=== PATIENT | female | born 1955 | race Caucasian/White ===

== ENCOUNTER 2020-12-05 09:19 | Outpatient (CLI) | payer BC, SELFPAY ==
--- NOTE | ~2020-12-05 | XR_ITS ---
EXAMINATION: XR chest 2V DATE: 12/05/2020 09:58 INDICATION: Shortness of breath TECHNIQUE: PA and lateral views of the chest were obtained. COMPARISON: None FINDINGS: The lungs are clear with no focal airspace opacities, pulmonary edema, pleural effusion or pneumothor ax. The cardiomediastinal silhouette is normal. Mild thoracolumbar dextrocurvature with mild to moder ate spondylosis. IMPRESSION: 1. No acute cardiopulmonary disease. Reviewed, dictated and finalized at location A.
[2020-12-05 10:00] LABS: Basophils Absolute Auto 0.1 K/mm3 (0.0-0.1); Basophils Percent Auto 0.6 % (0.2-1.2); Eosinophils Absolute Auto 0.2 K/mm3 (0-0.3); Eosinophils Percent Auto 1.7 % (0-4.4); Hemoglobin 14.4 g/dL (12.0-15.0); Immature Granulocyte Absolute 0.04 K/mm3 (0.00-0.031); Immature Granulocyte Percent A 0.4 % (0-0.5); Lymphocytes Absolute Auto 2.43 K/mm3 (0.9-3.2); Lymphocytes Percent Auto 27.1 % (18.3-44.2); Mean Corpuscular HGB Conc 32.7 g/dl (32-36); Mean Corpuscular Volume 91.7 fl (80-100); Monocytes Absolute Auto 0.5 K/mm3 (0.1-0.6); Monocytes Percent Auto 5.1 % (2.6-8.5); Neutrophils Absolute Auto 5.8 K/mm3 (1.3-6.7); Neutrophils Percent Auto 65.1 % (45.5-73.1); Platelet Count Result 339 k/mm3 (150-375); Red Cell Distribution Width 13.9 % (11.5-14.5)
[2020-12-05 10:02] LABS: Add Urine Microscopic? NO; Appearance Urine Clear (Clear); Bilirubin Urine Negative (Negative); Blood Urine Negative (Negative); Color Urine Straw (Yellow); Glucose Urine UA Negative (Negative); Ketones Urine Negative (Negative); Leukocyte Esterase Ur Negative LEU/UL (NEGATIVE); Nitrate Urine Negative (Negative); Protein Urine Negative (Negative); Specific Grav Ur 1.006 (1.001-1.035); Urobilinogen Urine Negative mg/dL (<2.0)
[2020-12-05 10:09] LABS: Alanine Aminotransferase 18 U/L (4-35); Albumin Level 4.9 g/dL (3.5-5.1); Alkaline Phosphatase 75 U/L (38-126); Anion Gap 11 mmol/L (8-16); Aspartate Amino Transferase 33 U/L (14-36); Bilirubin,Total 0.2 mg/dL (0.2-1.3); Blood Urea Nitrogen 9 mg/dL (7-17); Calcium 10.6 mg/dL (8.4-10.2); Carbon Dioxide 20 mmol/L (22-30); Chloride 108 mmol/L (98-107); Cholesterol 253 mg/dL (0-200); Estimated Glomerular Filt Rate > 60; Glucose 102 mg/dL (65-105); HDL Direct 109 mg/dL; Sodium 139 mmol/L (137-145); Triglycerides 165 mg/dL (<150)
[2020-12-05 10:20] LABS: LDL Cholesterol Direct 117 mg/dL
[2020-12-05 11:30] LABS: Folic Acid > 20.0 ng/mL (2.76->20)
[2020-12-05 11:46] LABS: Iron 144 ug/dL (37-170)
[2020-12-05 12:01] LABS: Percent Iron Saturation 39 % (20-50)
[2020-12-05 12:15] LABS: Free T4 Free Thyroxine 0.93 ng/mL (0.78-2.19); Vitamin D 25 Hydroxy 23.1 ng/mL
== END 2020-12-05 09:20 | disposition home or self-care (01) ==
PROVIDERS: PCP Nurse Practitioner Family; Visit Provider Nurse Practitioner Family
DX: R06.02 Shortness of breath (principal); R05 Cough; Z00.00 Encounter for general adult medical examination without abnormal findings; E03.9 Hypothyroidism, unspecified; R53.83 Other fatigue; E78.2 Mixed hyperlipidemia; I10 Essential (primary) hypertension; E55.9 Vitamin D deficiency, unspecified
CPT/HCPCS: 36415; 71046; 80053; 80061; 81003; 82306; 82607; 82746; 83540; 83550; 84439; 84443; 85025

== ENCOUNTER 2023-02-19 12:27 | Emergency (ER) | payer MEDICARE, SELFPAY ==
[2023-02-19] VITALS (10 sets, daily range): BP systolic 165; BP diastolic 103; PULSE 92–137; RESP 16–22; TEMP 36.2; O2SAT 90–100
--- NOTE | ~2023-02-19 | XR_ITS ---
XR chest 2V DATE: 02/19/2023 13:08 INDICATION: Chest pain for 4 weeks TECHNIQUE: PA and lateral views COMPARISON: 12/05/2020 PA and lateral chest FINDINGS: Normal heart size. No hilar or mediastinal enlargement. No pulmonary infiltrate or consolid ation, pleural effusion or pulmonary vascular congestion or pneumothorax is detected. Degenerative spurring and mild scoliosis of the thoracic spine. IMPRESSION: No active cardiopulmonary disease Reviewed, dictated and finalized at location L.
--- NOTE | 2023-02-19 12:35 | ECG_ITS ---
Measurements Intervals [place] Rate: 118 P: 7 ND: 126 QRS: -39 QRSD: 95 T: 0 QT: 316 QTc: 443 Interpretive Statements SINUS TACHYCARDIA POOR R WAVE PROGRESSION, CONSIDER ANTERIOR INFARCT INFERIOR INFARCT, AGE INDETERMINATE ABNORMAL ECG NO PREVIOUS ECG AVAILABLE FOR COMPARISON Electronically Signed On 02-20-2023 6:55:58 CDT by Sherwin Taylor D.O.
[2023-02-19 12:57] LABS: Basophils Absolute Auto 0.1 K/mm3 (0.0-0.1); Basophils Percent Auto 0.6 % (0.2-1.2); Eosinophils Percent Auto 0.3 % (0-4.4); Hematocrit 45.3 % (37.0-47.0); Hemoglobin 15.4 g/dL (12.0-15.0); Immature Granulocyte Absolute 0.04 K/mm3 (0.00-0.031); Immature Granulocyte Percent A 0.3 % (0-0.5); Lymphocytes Absolute Auto 1.96 K/mm3 (0.9-3.2); Mean Corpuscular Hemoglobin 30.1 pg (26-34); Mean Corpuscular Volume 88.6 fl (80-100); Mean Platelet Volume 8.8 fl (7.4-10.4); Monocytes Absolute Auto 0.8 K/mm3 (0.1-0.6); Neutrophils Absolute Auto 10.2 K/mm3 (1.3-6.7); Neutrophils Percent Auto 77.8 % (45.5-73.1); Platelet Count Result 407 k/mm3 (150-375); Red Blood Count 5.11 M/mm3 (4.2-5.4); Red Cell Distribution Width 14.6 % (11.5-14.5); White Blood Count 13.1 K/mm3 (4.5-10.0)
[2023-02-19 13:07] LABS: Alanine Aminotransferase 27 U/L (6-35); Albumin Level 5.3 g/dL (3.5-5.1); Alkaline Phosphatase 80 U/L (38-126); Anion Gap 21 mmol/L (8-16); Aspartate Amino Transferase 36 U/L (14-36); Bilirubin,Total 0.5 mg/dL (0.2-1.3); Blood Urea Nitrogen 13 mg/dL (7-17); Calcium 10.6 mg/dL (8.4-10.2); Carbon Dioxide 15 mmol/L (22-30); Chloride 106 mmol/L (98-107); Estimated CRCL calculation 67 ml/min; Estimated Glomerular Filt Rate > 60; Glucose 142 mg/dL (65-110); Lipase 98 U/L (23-300); Potassium 3.4 mmol/L (3.4-5.0); Sodium 142 mmol/L (137-145)
[2023-02-19 13:08] LABS: Prothrombin Time 13.3 Seconds (11.1-14.7)
[2023-02-19 13:09] LABS: Partial Thromboplastin Time 26.5 SECONDS (22.3-36.8)
[2023-02-19 13:19] LABS: Troponin I < 0.012 ng/mL (0.000-0.034)
[2023-02-19 14:05] LABS: Alveolar/Arterial O2 Gradient 42.4 mmHg; Carboxyhemoglobin 0.7 % THb (0-2.0); Fractional Inspired Oxygen 21 %; HCO3 ABG 16.1 mEq/l (22.0-26.0); Methemoglobin ABG 0.3 %THb (0-1.5); Oxygen Content ABG 21.2 %vol (16.0-22.0); Oxygen Saturation ABG 97.3 % (95.0-100.0); PO2 ABG 82.9 mmHg (80.0-100.0); PO2 FiO2 Ratio Arterial Blood 3.95 %; Total Hemoglobin 15.7 g/dL (12.0-18.0)
[2023-02-19 14:07] LABS: Modified Allen's Test Pass; PCO2 ABG 20.4 mmHg (35.0-45.0); Site Drawn RIGHT BRACHIAL; pH ABG 7.516 (7.350-7.450)
--- NOTE | 2023-02-19 14:10 | ED.GENADULT ---
HPI - General Adult General Chief complaint: Chest Pain Stated complaint: chest prssure Time Seen by Provider: 02/19/23 13:20 Source: patient, EMS and RN notes reviewed Mode of arrival: EMS History of Present Illness HPI narrative: This is a 67 year old female with history of anxiety who presents for evaluation of chest congestion. Patient reports she has been dealing with chest congestion for 1 month. She states she is coughing up a lot of phleg but she can not get it out. She reports fatigue and weakness for 1 month. She denies chest pain. She reports shortness of breath with activity. She states she has not sought medical treatment because she is homeless and does not have doctor. She was staying in hotel in [place]. It is reported that her went to hospital in [facility] but for some reason patient brought to [place]. She denies history of smoking cigarretes or alcohol use. She does reports edible THC use. Related Data Allergies Allergy/AdvReac Type Severity Reaction Status Date / Time No Known Allergies Allergy Verified 02/19/23 12:53 Review of Systems Constitutional: Constitutional: Denies weakness ENT: Reports nasal congestion Cardiovascular: Cardiovascular: Denies syncope, Denies rapid heart rate, Denies irregular heart rhythm, Denies leg edema and Denies dyspnea Respiratory: Respiratory: Reports chest congestion, Reports cough, Denies hemoptysis, Denies excessive phlegm production and Reports dyspnea Gastrointestinal: Gastrointestinal: Denies abdominal pain, Denies hematochezia, Denies diarrhea and Denies vomiting Genitourinary: Genitourinary: Denies hematuria and Denies dysuria Musculoskeletal: Musculoskeletal: Denies joint swelling, Denies loss of height and Denies muscle weakness Neurologic: Denies syncope, Denies focal weakness and Denies weakness PMF Past Medical History Medical History Allergic rhinitis Anxiety Anxiety and depression Arthritis BMI 35.0-35.9,adult Breast cancer screening Cataracts, bilateral Colon cancer screening Cough Depression Excessive somnolence disorder Frequent headaches Hypersomnia Hypertension Hypothyroidism (acquired) Insomnia Mixed hyperlipidemia Obesity, Class II, BMI 35-39.9 Osteoarthritis, multiple sites Primary hypertension Shortness of breath Thyroid disorder Vitamin D deficiency Surgical History Surgical History Hx of section Hx of knee surgery Family History Family History (Updated 12/17/19 @ 13:13 by Aric Gomez CMA) Mother Heart failure Father Cancer Social History Social History Smoking status: Never smoker Alcohol intake: never Substance use: current Substance use type: marijuana Other substance usage details: marijuana edible Exam Const: General: no acute distress and alert Nutritional Appearance: well nourished Orientation/consciousness: patient oriented x3 HENMT: Head: normal to inspection Eyes: EOM: EOMs intact bilaterally Chest: Chest palpation & inspection: normal inspection of the chest Resp: Effort & Inspection: normal respiratory effort Auscultation: clear to auscultation bilaterally Cardio: Rate: tachycardic Rhythm: regular rhythm Heart sounds: no murmurs GI: GI Palp: Yes Soft to palpation, No Tenderness to palpation present (GI), No Guarding due to palpation present (GI) and No Rigid due to palpation Auscultation: normal bowel sounds Skin: General skin exam: normal color Rashes: no rashes Neuro: General: patient oriented x3, moves all extremities and CN's II-XI intact bilaterally Extrem: General: normal to inspection Psych: Mental Status: mental status grossly normal Affect: normal affect Attitude: cooperative Course Reevaluation(s) Reevaluation #1: Patient is resting comf
[2023-02-19 14:18] LABS: Appearance Urine Clear (Clear); Bilirubin Urine 2+ (Negative); Blood Urine 1+ (Negative); Color Urine Yellow (Yellow); Glucose Urine UA Negative (Negative); Ketones Urine 4+ mg/dL (Negative); Leukocyte Esterase Ur Negative LEU/UL (Negative); Nitrate Urine Negative (Negative); Protein Urine 3+ mg/dL (Negative); Specific Grav Ur >= 1.030 (1.001-1.035); Urobilinogen Urine 0.2 mg/dL (<2.0); pH Urine 5.5 (5.0-9.0)
[2023-02-19 14:19] LABS: Lactic Acid Reflex 1.9 mmol/L (0.7-2.0)
[2023-02-19] MEDS: ALPRAZolam (*CRX) 0.5 MG TABLET 0.25 MG PO (14:22)
[2023-02-19] MEDS: SODIUM CHLORIDE 0.9% IV 1,000 ML 999 ML IV CONT ×2 (14:22)
[2023-02-19 14:29] LABS: D Dimer 0.43 ug/mL (<0.48)
[2023-02-19 14:38] LABS: NT Pro B Type Natriuretic Pept 240 pg/mL (19.9-100)
[2023-02-19 14:41] LABS: Bacteria Urine Rare /hpf; Hyaline Casts Urine Present /lpf; Need Manual Microscopic Reviewed; Non Pathogenic Casts >20; Squamous Epithelial Cell Urine Moderate /hpf (Few); WBC Urine 0-5 /hpf
[2023-02-19 14:42] LABS: Add Urine Microscopic? YES
[2023-02-19 16:10] LABS: Troponin I < 0.012 ng/mL (0.000-0.034)
[2023-02-19 16:33] LABS: Amphetamine Screen Urine Negative (Negative); Barbiturate Screen Urine Negative (Negative); Benzodiazepines Screen Urine Negative (Negative); Cannabinoid Screen Urine Positive (Negative); Cocaine Screen Urine Negative (Negative); Methadone Screen Urine Negative (Negative); Opiate Screen Urine Negative (Negative); Phencyclidine Screen Urine Negative (Negative)
== END 2023-02-19 16:46 | disposition home or self-care (01) ==
PROVIDERS: Emergency Medicine; Emergency Provider General Practice
DX: R07.89 Other chest pain (principal); E86.0 Dehydration; R00.0 Tachycardia, unspecified; F41.9 Anxiety disorder, unspecified; F32.A Depression, unspecified; M19.90 Unspecified osteoarthritis, unspecified site; I10 Essential (primary) hypertension; R06.02 Shortness of breath
CPT/HCPCS: 36415; 36600; 71046; 80048; 80053; 80076; 80307; 81001; 82375; 82805; 83050; 83605; 83690; 83880; 84443; 84484; 85025; 85380; 85610; 85730; 93005; 96360; 99284; A9270; J7030

== ENCOUNTER 2023-02-19 21:26 | Emergency (ER) | payer MEDICARE, SELFPAY ==
[2023-02-19 21:28] VITALS: BP 119/101; PULSE 113; RESP 18; TEMP 37.1; O2SAT 97
--- NOTE | 2023-02-19 22:31 | ECG_ITS ---
Measurements Intervals [place] Rate: 94 P: 5 NM: 137 QRS: -17 QRSD: 106 T: -1 QT: 364 QTc: 457 Interpretive Statements SINUS RHYTHM DELAYED PRECORDIAL R/S TRANSITION BORDERLINE T WAVE ABNORMALITY- INFERIOR LEADS BORDERLINE ECG COMPARED TO ECG 02/19/2023 12:35:38 SINUS RHYTHM NOW PRESENT Electronically Signed On 02-20-2023 7:00:39 CDT by Sherwin Taylor D.O.
--- NOTE | 2023-02-19 22:36 | ED.GENADULT ---
HPI - General Adult General Chief complaint: Unspecified Stated complaint: LOW BACK PAIN Time Seen by Provider: 02/19/23 21:44 History of Present Illness HPI narrative: 67 year old female presented with chest pain. Per patient, she has been having increased life stressors, especially since being homeless. She was seen and discharged from the ED several hours prior for same complaint, she was sent to a long-term that is meant for women with children, was rejected, so called EMS to bring her to the hospitals. She reports continued chest discomfort, similar to what she has been having in the past month. Non radiating, no diaphoresis, denied nausea/vomiting, shortness of breath, hemoptysis, abdominal pain, fevers/chills, cough, sick contacts. Records reviewed, patient seen in ED for similar complaint. CXR clear. D dimer negative. Related Data Allergies Allergy/AdvReac Type Severity Reaction Status Date / Time No Known Allergies Allergy Verified 02/19/23 12:53 Review of Systems Review of Systems: see hpi [facility] Past Medical History Medical History Allergic rhinitis Anxiety Anxiety and depression Arthritis BMI 35.0-35.9,adult Breast cancer screening Cataracts, bilateral Colon cancer screening Cough Depression Excessive somnolence disorder Frequent headaches Hypersomnia Hypertension Hypothyroidism (acquired) Insomnia Mixed hyperlipidemia Obesity, Class II, BMI 35-39.9 Osteoarthritis, multiple sites Primary hypertension Shortness of breath Thyroid disorder Vitamin D deficiency Surgical History Surgical History Hx of section Hx of knee surgery Family History Family History Mother Heart failure Father Cancer Social History Social History Smoking status: Never smoker Alcohol intake: never Substance use: current Substance use type: marijuana Other substance usage details: marijuana edible Exam Narrative: General: Alert, calm and cooperative, no acute distress, phonating, sitting comfortably during visit HEENT: Pupils equal round and reactive to light, extra ocular movements intact, no conjunctival injection, head atraumatic, neck supple without meningismus Cardiovascular: Regular rate and rhythm, no visible jugular venous distension Respiratory: Lungs clear to auscultation bilaterally, no wheezing/rales/rhonchi Abdominal: soft, non-tender, non-distended, no guarding, no rebound/peritoneal signs, no costovertebral tenderness to palpation Back: no midline tenderness to palpation, no step offs Extremities: No edema, palpable peripheral pulses, warm, well perfused, no tenderness to bilateral calves Neurological: Alert, moving all extremities symmetrically, ambulating without deficit Psych: tangential, difficult to redirect, perseverating on stress from homelessness Course Vital Signs Vital signs: Vital Signs Temperature 98.8 F 02/19/23 21:28 Pulse Rate 113 H 02/19/23 21:28 Respiratory Rate 18 02/19/23 21:28 Blood Pressure 119/101 H 02/19/23 21:28 Pulse Oximetry 97 02/19/23 21:28 Oxygen Delivery Room Air 02/19/23 21:28 Temperature 98.8 F 02/19/23 21:28 Pulse Rate 114 H 02/19/23 23:53 Respiratory Rate 18 02/19/23 23:53 Blood Pressure 198/100 H 02/19/23 23:53 Pulse Oximetry 97 02/19/23 23:53 Oxygen Delivery Room Air 02/19/23 21:28 Medical Decision Making [facility] Narrative Medical decision making narrative: 67 year old female history of HTN presented with chest pain in the setting of being rejected from her long-term. Physical exam benign, sitting in bed comfortably, vitals stable. EKG without STEMI or STEMI equiuvalents. Differential diagnosis includes but not limited to: ACS vs PE vs Pneumonia. PE less likely in the sett
[2023-02-19 23:34] LABS: Alanine Aminotransferase 23 U/L (6-35); Albumin Level 4.8 g/dL (3.5-5.1); Alkaline Phosphatase 66 U/L (38-126); Aspartate Amino Transferase 35 U/L (14-36); Bilirubin,Total 0.5 mg/dL (0.2-1.3)
[2023-02-19 23:35] LABS: Anion Gap 16 mmol/L (8-16); Blood Urea Nitrogen 11 mg/dL (7-17); Calcium 9.2 mg/dL (8.4-10.2); Carbon Dioxide 16 mmol/L (22-30); Chloride 110 mmol/L (98-107); Estimated CRCL calculation 80 ml/min; Estimated Glomerular Filt Rate > 60; Glucose 98 mg/dL (65-110); Potassium 3.1 mmol/L (3.4-5.0); Sodium 142 mmol/L (137-145)
[2023-02-19 23:46] LABS: Troponin I < 0.012 ng/mL (0.000-0.034)
[2023-02-19] MEDS: POTASSIUM CHLORIDE 20 MEQ PACKET (FOR LIQUID) 40 MEQ PO (23:51)
[2023-02-19 23:53] VITALS: BP 198/100; PULSE 114; RESP 18; O2SAT 97
[2023-02-20] MEDS: LORazepam (*CRX) 1 MG TABLET PO (00:10)
[2023-02-20] MEDS: IBUPROFEN 400 MG TABLET PO (01:31)
[2023-02-20] MEDS: ACETAMINOPHEN 500 MG TABLET 1000 MG PO (01:31)
--- NOTE | 2023-02-20 01:47 | PC.NURSE ---
Pt began being verbally abusive to staff around 0030. Pt called staff mac lechuga . Pt stated multiple times I hope you all go fuck yourselves .
== END 2023-02-20 01:51 | disposition home or self-care (01) ==
PROVIDERS: Emergency Provider Emergency Medicine
DX: R07.89 Other chest pain (principal); F41.9 Anxiety disorder, unspecified; F32.A Depression, unspecified; M19.90 Unspecified osteoarthritis, unspecified site; I10 Essential (primary) hypertension
CPT/HCPCS: 36415; 36600; 71046; 80048; 80053; 80076; 80307; 81001; 82375; 82805; 83050; 83605; 83690; 83880; 84443; 84484; 85025; 85380; 85610; 85730; 93005; 96360; 99284; A9270; J7030